=== PATIENT | male | born 1985 | race Caucasian/White ===

== ENCOUNTER 2022-09-02 02:59 | Outpatient (CLI) | payer MEDICARE, MEDICAID, SELFPAY ==
[2022-09-02 13:12] LABS: Calculated LDL 117 mg/dL (<100); Cholesterol 182 mg/dL (<200); Glucose 93 mg/dL (74-106); HDL Cholesterol 40 mg/dL (40-60); Triglyceride 125 mg/dL (<150)
== END 2022-09-02 03:00 | disposition home or self-care (01) ==
PROVIDERS: PCP Family Medicine; Visit Provider Family Medicine
DX: E78.5 Hyperlipidemia, unspecified (principal); R73.9 Hyperglycemia, unspecified
CPT/HCPCS: 36415; 80061; 82947